=== PATIENT | male | born 1975 | race Hispanic/Latino ===

== ENCOUNTER 2017-02-08 15:57 | Day surgery (SDC) | payer OTHER ==
[~2017-02-08 15:57] MED LIST: DIPRIVAN 10 MG/ML IV ONE; NACL 0.9% 1000 ML 0 ML ONE; OMNIPAQUE 300 MG/50 ML (CATH LAB) IV ONE; WATER FOR IRRIG STERILE IR ONE; XYLOCAINE MPF 2% ONE
[2017-02-08] MEDS ORDERED: NACL BACTERIOSTATIC INFILTRATI ONE (16:12)
--- NOTE | 2017-02-08 16:22 | Anesthesia Day of Surgery ---
Anesthesia Day of Surgery - Day of Surgery Patient Examined: Yes Patient H&P Reviewed: Yes Patient is NPO: Yes
--- NOTE | 2017-02-08 16:38 | Anesthesia Consultation ---
Anesthesia Consult and Med Hx - Airway Anesthetic Teeth Evaluation: Good ROM Head & Neck: Adequate Mental/Hyoid Distance: Adequate Mallampati Class: Class II Intubation Access Assessment: Probably Good - Pulmonary Exam CTA: Yes - Pre-Operative Health Status ASA Pre-Surgery Classification: ASA2 Proposed Anesthetic Plan: General - Pulmonary Hx Smoking: Yes (CHEWING TOBACCO-STOPPED 3 YRS AGO) Hx Sleep Apnea: No (RIMMA PRE SCREEN LOW RISK) - Cardiovascular System Hx Hypertension: No - Gastrointestinal Hx Gastroesophageal Reflux Disease: Yes (occ. no meds at present) - Other Systems Hx Alcohol Use: Yes (1-2 BEERS QD- STOPPED 8 DAYS AGO) Hx Cancer: No - Additional Comments Anesthesia Medical History Comments: NPO after MN. No anesthesia problems in past
[2017-02-08] MEDS ORDERED: VERSED IV NR (17:00)
[2017-02-08] MEDS ORDERED: PEPCID PO NR (17:00)
[2017-02-08] MEDS ORDERED: NACL 0.9% 1000 ML 1,000 ML IV SCH (17:00)
[2017-02-08] MEDS ORDERED: ANCEF/STERILE WATER 2 GM/20 ML 2 GM/20 ML SYRINGE IV ONE (17:40)
--- NOTE | 2017-02-08 17:59 | Short Stay Summary ---
Short Stay Documentation Date of service: 02/08/17 - History H&P: obtained from office - Allergies and Medications Current Medications: Allergies No Known Allergies Allergy (Verified 02/07/17 15:52) Home Medications Medication Instructions Recorded Confirmed Last Taken Type Ciprofloxacin HCl [Ciprofloxacin 500 mg PO BID 02/07/17 02/08/17 02/06/17 History TAB] Fexofenadine/Pseudoephedrine 1 tab PO PRN PRN 02/07/17 02/08/17 02/06/17 History [Pam-D 12 Hour Tablet] HYDROcodone/APAP 5-325 [[place] 1 tab PO PRN PRN 02/07/17 02/07/17 Unknown History 5-325 mg TAB] Tamsulosin [Flomax] 0.4 mg PO QHS 02/07/17 02/08/17 02/06/17 History oxyCODONE [Roxicodone] 5 mg PO Q6HR PRN 02/07/17 02/08/17 02/08/17 History Active Medications Famotidine (Pepcid) 20 mg PO PREOP NR Stop: 02/09/17 16:59 Last Admin: 02/08/17 16:27 Dose: 20 mg Sodium Chloride (Nacl 0.9% 1000 Ml) 1,000 mls @ 75 mls/hr IV DIRECT SARINA Midazolam HCl (Versed) 2 mg IV PREOP NR Stop: 02/08/17 23:59 Last Admin: 02/08/17 16:27 Dose: 2 mg - Brief post op/procedure progress note Date of procedure: 02/08/17 Pre-op diagnosis: Left Uret stone w/ severe pain Post-op diagnosis: same Procedure: cysto, brpg, left stent 6x28, left dilation, left rigid urs Anesthesia: GETA Findings: lt uret stone hydro Surgeon: CURTIS WHALEN Estimated blood loss: minimal Pathology: none Condition: stable - Hospital course Hospital course: or pacu home - Disposition Condition at discharge: Good Disposition: DISCHARGED TO HOME OR SELFCARE Short Stay Discharge Plan Activity: advance as tolerated Diet: advance as tolerated Follow up with: CURTIS WHALEN MD [Staff Physician] - 3 Days
[2017-02-08] MEDS ORDERED: OMNIPAQUE 300 MG/50 ML (CATH LAB) IV ONE ×2 (18:22)
[2017-02-08] MEDS ORDERED: WATER FOR IRRIG STERILE IR ONE ×2 (18:22)
[2017-02-08] MEDS ORDERED: ZOFRAN ONE (18:51)
[2017-02-08] MEDS ORDERED: DILAUDID ONE (19:26)
[2017-02-08] MEDS: DILAUDID IV PRN ×3 (19:33→20:42)
[2017-02-08 21:37] VITALS: BP 140/88
--- NOTE | 2017-02-09 15:38 | Fluoroscopy Report ---
Left retrograde pyelogram and left ureteral dilatation procedure. Findings: The right pyelocalyceal system and ureter are normal. There is mild left pelvocaliectasis. The left ureter appears normal. After performing a balloon dilatation, a double-J left ureteral stent was placed in satisfactory position.
--- NOTE | 2017-02-11 08:58 | Operative Report ---
PREOPERATIVE DIAGNOSES: Severe left flank pain, bilateral renal stones, left ureteral 4-5 mm stone. POSTOPERATIVE DIAGNOSES: Severe left flank pain, bilateral renal stones, left ureteral 4-5 mm stone. PROCEDURE: Cystoscopy, bilateral retrograde pyelogram, left ureteral stent placement 6 x 28, left ureteral dilation, left ureteroscopy. FINDINGS: Distal ureter stenosed; also just proximal ureteral orifice and left mid ureteral stone. CLINICAL INDICATIONS: The patient counseled RCBA. The patient was tentatively trying to do extracorporeal shockwave lithotripsy, but came in unable to tolerate the pain, scheduled for this procedure as an add-on. Counseled on risks, RCBA, I made consent. DESCRIPTION OF PROCEDURE: The patient had antibiotics and SCDs. He was transferred to the OR suite in supine position, anesthesia, dorsal lithotomy, prepped and draped in standard fashion. At this point, a 20-Burmese scope, normal penile, bulbar urethra, mild to moderate enlarged lateral and median lobes. Upon entering bladder, pancystoscopy with 30 and 70-degree lens demonstrated no tumors, lesions or other abnormalities. At this point, the right retrograde pyelogram, 8-Burmese cone-tipped catheter, normal right distal ureter, proximal ureter, renal pelvis calyces. No filling defects or hydronephrosis. Left retrograde demonstrated a filling defect and some mild hydro. We tried not to over distend any of the system, but a filling defect in approximately the mid ureter. At this point, the ureteral orifice looked very small and stenosed. A Glidewire was passed up to left renal pelvis. A Glidewire under fluoroscopic visualization, a balloon dilator was passed. We began our dilation, but there was still a stenosed area just approximately 1 cm from the ureteral orifice, an area that was significantly stenosed that even the balloon dilator was not actively able to open. At this point, we removed the balloon dilator, passed the second wire, rigid scope passed to inspect the area, and with this, we were able to passively pass the rigid scope and dilate this area. Next, we attempted passing the scope further; however, the ureter did seem to be stenosed and the angle appeared that it would cause more trauma once we were able to pass this point. We did pass this point by a few centimeters, but once again the area and the angles appeared that the rigid scope would be very tight, would be very difficult to access the stone with that or even a flexible. The likely best thing was to place a stent and allow for some passive dilation and reevaluation. At this point, the stent was passed. The scope was removed. A wire backloaded on the cystoscope. A 6 x 28 double-J stent was passed over the wire under direct and fluoroscopic visualization. When the wire and instrument were removed, there was nice proximal J, nice distal J in the bladder. Bladder was drained, scope was removed. Exam under anesthesia, bilateral testicles, no masses on exam or nodules. At this point, the patient was awakened and transferred to PACU. PLAN: The patient is staged for future repeat ureteroscopy or extracorporeal shockwave lithotripsy if stone visible. The patient is also staged for future stent removal. JOB# [id number] ATS/NTS
== END 2017-02-08 21:30 | disposition home or self-care (01) ==
LOC: OR 15:57
PROVIDERS: ATTEND Urology
DX: N20.1 Calculus of ureter (principal); N20.0 Calculus of kidney; K21.9 Gastro-esophageal reflux disease without esophagitis; F10.21 Alcohol dependence, in remission; Z87.891 Personal history of nicotine dependence; Z83.49 Family history of other endocrine, nutritional and metabolic diseases; Z80.8 Family history of malignant neoplasm of other organs or systems; Z80.51 Family history of malignant neoplasm of kidney
CPT/HCPCS: 52332; 74420; 74485; A4217; C1726; C1758; C1769; C2617; J0690; J1170; J2250; J2405; J2704; J7030; Q9967

== ENCOUNTER 2017-05-25 05:44 | Inpatient (IN) | payer OTHER ==
[2017-05-25] MEDS ORDERED: NACL BACTERIOSTATIC INFILTRATI ONE (06:44)
[2017-05-25] MEDS ORDERED: DILAUDID IV ONE (07:18)
[2017-05-25] MEDS ORDERED: DILAUDID IV PRN (07:18)
--- NOTE | 2017-05-25 07:21 | Anesthesia Consultation ---
Anesthesia Consult and Med Hx Date of service: 05/25/17 - Airway Anesthetic Teeth Evaluation: Good ROM Head & Neck: Adequate Mental/Hyoid Distance: Adequate Mallampati Class: Class II Intubation Access Assessment: Probably Good - Pulmonary Exam CTA: Yes - Cardiac Exam Cardiac Exam: RRR - Pre-Operative Health Status ASA Pre-Surgery Classification: ASA2 Proposed Anesthetic Plan: General - Pulmonary Hx Smoking: Yes (CHEWING TOBACCO-STOPPED 3 YRS AGO) Hx Sleep Apnea: No (RIMMA PRE SCREEN LOW RISK) - Cardiovascular System Hx Hypertension: No (recent high reading) Hx Coronary Artery Disease: No (But has to see a atomic spectroscopist because of incidental finding on CT + fam hx) Hx Heart Attack/AMI: No (No CP, no SOB, >2FOS) - Gastrointestinal Hx Gastroesophageal Reflux Disease: Yes (occ. no meds at present) - Other Systems Hx Alcohol Use: Yes (1-2 BEERS daily) Hx Cancer: No
--- NOTE | 2017-05-25 07:21 | Anesthesia Day of Surgery ---
Anesthesia Day of Surgery - Day of Surgery Patient Examined: Yes Patient H&P Reviewed: Yes Patient is NPO: Yes
[2017-05-25] MEDS ORDERED: DIPRIVAN 10 MG/ML IV ONE (07:31)
[2017-05-25] MEDS ORDERED: SUBLIMAZE ONE (07:32)
[2017-05-25] MEDS ORDERED: LACTATED RINGERS 1,000 ML IV SCH ×2 (08:00)
[2017-05-25] MEDS ORDERED: PEPCID PO NR (08:00)
[2017-05-25] MEDS ORDERED: ZOFRAN IV PRN (08:00)
[2017-05-25] MEDS ORDERED: ANCEF/STERILE WATER 2 GM/20 ML 2 GM/20 ML SYRINGE IV ONE (08:40)
[2017-05-25] MEDS ORDERED: ANCEF/STERILE WATER 2 GM/20 ML IV NR (08:40)
--- NOTE | 2017-05-25 09:03 | Short Stay Summary ---
Short Stay Documentation Date of service: 05/25/17 - History H&P: obtained from office - Allergies and Medications Current Medications: Allergies No Known Allergies Allergy (Verified 02/07/17 15:52) Home Medications Medication Instructions Recorded Confirmed Last Taken Type Tamsulosin [Flomax] 0.4 mg PO QHS 02/07/17 05/19/17 05/24/17 History oxyCODONE [Roxicodone] 5 mg PO Q6HR PRN 02/07/17 05/19/17 05/24/17 History Sulfamethoxazole/Trimethoprim 1 each PO DAILY 05/19/17 05/19/17 05/24/17 History [Sulfamethoxazole-Tmp Ss Tablet] Active Medications Famotidine (Pepcid) 20 mg PO PREOP NR Stop: 05/25/17 10:00 Last Admin: 05/25/17 07:51 Dose: 20 mg Hydromorphone HCl (Dilaudid) 0.5 mg IV Q10MIN PRN PRN Reason: Pain , Severe (7-10) Stop: 05/25/17 12:00 Lactated Ringer's (Lactated Ringers) 1,000 mls @ 100 mls/hr IV DIRECT SARINA Last Admin: 05/25/17 07:53 Dose: 100 mls/hr - Brief post op/procedure progress note Date of procedure: 05/25/17 Pre-op diagnosis: left ureteral stone Post-op diagnosis: same Procedure: lt urs, left stent Anesthesia: GETA Findings: no dev Surgeon: CURTIS WHALEN Estimated blood loss: minimal Pathology: none Condition: stable - Hospital course Hospital course: orpacu extended obs home; disc obs overnight - Disposition Condition at discharge: Good Disposition: DC-01 TO HOME OR SELFCARE Short Stay Discharge Plan Activity: advance as tolerated Diet: advance as tolerated Follow up with: CURTIS WHALEN MD [Staff Physician] - 7 Days Forms: Outpatient Surgery DC Inst. Prescriptions: Oxycodone HCl/Acetaminophen [Percocet 10-325 mg] 0.5 - 1 each PO Q6HR PRN #25 tablet PRN Reason: Pain Sulfamethoxazole/Trimethoprim [Bactrim DS TAB] 1 each PO BID #10 tablet
[2017-05-25] MEDS ORDERED: REGLAN ONE (09:28)
[2017-05-25] MEDS ORDERED: QUELICIN ONE (09:28)
[2017-05-25] MEDS ORDERED: BENADRYL ONE (09:28)
[2017-05-25] MEDS ORDERED: DECADRON ONE (09:29)
[2017-05-25] MEDS ORDERED: ZOFRAN ONE (09:29)
[2017-05-25] MEDS ORDERED: XYLOCAINE MPF 2% ONE (09:56)
[2017-05-25] MEDS ORDERED: WATER FOR IRRIG STERILE IR ONE ×2 (10:01→10:02)
[2017-05-25] MEDS ORDERED: OMNIPAQUE 300 MG/50 ML (CATH LAB) IV ONE (10:01)
[2017-05-25] MEDS ORDERED: PROVENTIL IH ONE ×2 (10:37→10:42)
[2017-05-25] MEDS ORDERED: NORMODYNE IV ONE ×2 (10:43→10:51)
[2017-05-25] MEDS ORDERED: ANTILIRIUM ONE (10:43)
[2017-05-25] MEDS ORDERED: ANTILIRIUM IV PRN (10:44)
--- NOTE | 2017-05-25 12:03 | Fluoroscopy Report ---
Findings: Fluoroscopy was provided by radiology during retrograde urography done by urology. 10 fluoroscopic images were captured. Please correlate with the procedural report.
--- NOTE | 2017-05-25 12:29 | XRay Report ---
AP CHEST: HISTORY: Shortness of breath, hypoxia AP view of the chest demonstrates a normal mediastinal and cardiac contour with clear lungs and normal bony and soft tissue structures. IMPRESSION: Unremarkable AP chest.
--- NOTE | 2017-05-25 12:50 | Post Anesthesia Evaluation ---
- Post Anesthesia Evaluation Patient Participated: Yes Airway Patent: Yes Stable Respiratory Function: Yes Nausea/Vomiting: No Temp > 96.8F: Yes Pain Manageable: Yes Adequeate Hydration: Yes Anesthesia Complications: No Block Receding Appropriately: Not Applicable Patient on Ventilator: No
--- NOTE | 2017-05-25 17:38 | History and Physical Report ---
History of Present Illness Date of admission: 05/25/17 17:14 Chief complaint: My oxygen is low History of present illness: 41 YO Male with ETOH Dependence, GERD, Nephrolithaisis S/P stent placement admitted directly at the request of Dr. Farias for evaluation. Pt Past History Past Medical History: GERD, other (ETOH dependence) Past Surgical History: Other (urologic stant placement) Social history: , lives with family, alcohol abuse. denies: smoking, prescription drug abuse, IV drug use Family history: CAD, hypertension Medications and Allergies Allergies Allergy/AdvReac Type Severity Reaction Status Date / Time No Known Allergies Allergy Verified 02/07/17 15:52 Home Medications Medication Instructions Recorded Confirmed Last Taken Type Tamsulosin [Flomax] 0.4 mg PO QHS 02/07/17 05/19/17 05/24/17 History oxyCODONE [Roxicodone] 5 mg PO Q6HR PRN 02/07/17 05/19/17 05/24/17 History Sulfamethoxazole/Trimethoprim 1 each PO DAILY 05/19/17 05/19/17 05/24/17 History [Sulfamethoxazole-Tmp Ss Tablet] Oxycodone HCl/Acetaminophen 0.5 - 1 each PO Q6HR PRN #25 tablet 05/25/17 Unknown Rx [Percocet 10-325 mg] Sulfamethoxazole/Trimethoprim 1 each PO BID #10 tablet 05/25/17 Unknown Rx [Bactrim DS TAB] Active Meds: Active Medications Cefazolin Sodium (Ancef/Sterile Water 2 Gm/20 Ml) 2 gm IV PREOP NR Stop: 05/25/17 21:00 Lactated Ringer's (Lactated Ringers) 1,000 mls @ 100 mls/hr IV DIRECT SARINA Last Admin: 05/25/17 07:53 Dose: 100 mls/hr Physostigmine Salicylate (Antilirium) 0.5 mg IV Q20M PRN PRN Reason: Agitation Stop: 05/25/17 23:59 Review of Systems All systems: negative Constitutional: other (low oxygen) Ears, nose, mouth and throat: no ear pain Cardiovascular: no chest pain Respiratory: no cough Gastrointestinal: no abdominal pain Genitourinary Male: no dysuria Rectal: no pain Musculoskeletal: no arm numbness/tingling Integumentary: no rash Neurological: no transient paralysis Psychiatric: no anxiety Endocrine: no cold intolerance Hematologic/Lymphatic: no easy bruising Allergic/Immunologic: no urticaria Exam - Constitutional Vitals: Temp Pulse Resp BP Pulse Ox 98.6 F 68 14 139/85 96 05/25/17 06:32 05/25/17 06:32 05/25/17 11:02 05/25/17 06:32 05/25/17 06:32 General appearance: Present: mild distress - EENT Eyes: Present: PERRL ENT: hearing intact, clear oral mucosa - Neck Neck: Present: supple, normal ROM - Respiratory Respiratory effort: normal Respiratory: bilateral: CTA - Cardiovascular Heart Sounds: Present: S1 & S2. Absent: rub, click - Extremities Extremities: pulses symmetrical, No edema Peripheral Pulses: within normal limits - Abdominal General gastrointestinal: Present: soft, non-tender, non-distended, normal bowel sounds Male genitourinary: Present: normal - Integumentary Integumentary: Present: clear, warm, dry - Musculoskeletal Musculoskeletal: gait normal, strength equal bilaterally - Psychiatric Psychiatric: appropriate mood/affect, intact judgment & insight - Neurologic Neurologic: CNII-XII intact, moves all extremities Assessment and Plan - Patient Problems (1) Acute respiratory failure Current Visit: Yes Status: Acute Qualifiers: Respiratory failure complication: R Plan to address problem: Supplemental oxygen, nebs, aspiration precautions, pulmonary toilet, incentive spirometry, Symptoms improved at time of evaluation. Pt wants to go home.Pt made aware of risks. Pt to return to ED if symtoms return and he decides to go home. . (2) EtOH dependence Current Visit: Yes Status: Acute Qualifiers: Substance use status: uncomplicated Complication of substance-induced condition: C Qualified Code(s): F10.20 - Alcohol dependence, uncomplicated Plan to address problem: supportive care. Pt has not had a drink in more than 96 hrs. continue to monitor (3) GERD (gastroesophageal reflux disease) Current Visit: Yes Status: Acute Qualifiers: Esophagitis presence: E Plan to address problem: ppi therapy, (4) Nephrolithiasis Current Visit: Yes Status: Acute Plan to address problem: Urology consulted. (5) DVT prophylaxis Current Visit: Yes Status: Acute
[2017-05-25] MEDS ORDERED: PROVENTIL IH PRN (17:45)
[2017-05-25] MEDS ORDERED: TYLENOL PO PRN (17:45)
[2017-05-25 20:17] VITALS: BP 109/82
[2017-05-25] MEDS ORDERED: PEPCID PO SCH (22:00)
--- NOTE | 2017-05-30 07:55 | Operative Report ---
PREOPERATIVE DIAGNOSIS: Left ureteral 4-mm stone. POSTOPERATIVE DIAGNOSIS: Left ureteral 4-mm stone. PROCEDURE: Cystoscopy, left ureteroscopy, left ureteral stent placement, 6-Turkmen. SURGEON: Macario Farias MD ANESTHESIA: General. SPECIMENS: None. ESTIMATED BLOOD LOSS: Minimal. COMPLICATIONS: None. FINDINGS: Very narrow ureter on the right and left consistent with past ureteroscopy having most narrow ureter, but seems to drain well, right retrograde normal, left retrograde mild hydro. CLINICAL INDICATION: flexible ureteroscope with very narrow ureter and unable to pass small stones. He was counseled on RCBA, antibiotics, SCDs. DESCRIPTION OF PROCEDURE: The patient was transferred to the OR suite in supine position, anesthesia, dorsal lithotomy, prepped and draped in standard fashion. A 22-Turkmen scope passed. Pancystoscopy 30 and 70-degree lens demonstrated no tumors, lesions, or other abnormalities. At this point, we did a right retrograde pyelogram with 8-Turkmen cone-tipped catheter within normal limits. No filling defects. Hydronephrosis seemed to drain within normal limits for his past RPG, but what was found there was a very narrow caliber right ureter. This was done on the left side. Retrograde with some hydroureter, but still very narrow caliber ureter, likely stone only partially obstructing. This was an extreme narrow caliber left ureter consistent with past ureteroscopy and RPG. At this point, a Glidewire was passed. The patient was having pain before the procedure. There may be some mild once again the fullness in comparison to the other narrow ureter, but this was still well below the normal size of normal standard diameter of a ureter. At this point, Glidewire passed. We passed [facility] rigid ureteroscope, still with some difficult passing this up ureter. At this point, we used the other additional ureteroscope, was passed. Attempted passing this up was unsuccessful. Second Glidewire passed. Flexible scope was passed over the Glidewire and this still would only pass up beyond the bony pelvis. Of note, at the beginning of the procedure on the left side when the first Glidewire was passed, we did attempt passing a flexible ureteroscope passed. First due to his known history, but even at that point the flexible ureteroscope would not pass and then we went to the rigid ureteroscope to attempt to see if we could with some passive dilation at the more distal ureter would be able to pass the flexible scope and we were unsuccessful as described. At this point, the wire was backloaded on cystoscope. A 6-Turkmen double-J stent was passed over the wire under direct and fluoroscopic visualization when the wire and string was removed, nice proximal J, nice distal J within the bladder bladder drained. The patient was awakened, transferred to the PACU in good and stable condition. JOB# [id number] ATS/MICHELLE KENNY
== END 2017-05-25 18:05 | disposition home or self-care (01) | DRG 693 ==
LOC: OR 05:44 → 3A 17:14
PROVIDERS: ADMIT Internal Medicine; ATTEND Internal Medicine
PROC: 0T778DZ Dilation of Left Ureter with Intraluminal Device, Via Natural or Artificial Opening Endoscopic (ICD-10-PCS; principal; 2017-05-25)
DX: N20.2 Calculus of kidney with calculus of ureter (principal); J96.00 Acute respiratory failure, unspecified whether with hypoxia or hypercapnia; F10.20 Alcohol dependence, uncomplicated; K21.9 Gastro-esophageal reflux disease without esophagitis; Z82.49 Family history of ischemic heart disease and other diseases of the circulatory system
CPT/HCPCS: 71010; 74420; A4217; C1758; C1769; C2617; J0330; J0690; J1100; J1170; J1200; J2405; J2704; J2765; J3010; J7120; Q9967

== ENCOUNTER 2017-06-08 05:50 | Day surgery (SDC) | payer OTHER ==
[2017-06-08] MEDS ORDERED: PEPCID PO NR (06:00)
[2017-06-08] MEDS ORDERED: VERSED IV NR (06:00)
[2017-06-08] MEDS ORDERED: NACL BACTERIOSTATIC INFILTRATI ONE (06:43)
[2017-06-08] MEDS: NACL 0.9% 1000 ML 1,000 ML IV SCH ×2 (06:55→11:32)
--- NOTE | 2017-06-08 07:00 | Anesthesia Consultation ---
Anesthesia Consult and Med Hx Date of service: 06/08/17 - Airway Anesthetic Teeth Evaluation: Good ROM Head & Neck: Adequate Mental/Hyoid Distance: Adequate Mallampati Class: Class I Intubation Access Assessment: Probably Good - Pulmonary Exam CTA: Yes - Cardiac Exam Cardiac Exam: RRR - Pre-Operative Health Status ASA Pre-Surgery Classification: ASA2 Proposed Anesthetic Plan: General - Pulmonary Hx Smoking: Yes (CHEWING TOBACCO-STOPPED 3 YRS AGO, remote smoking hx) Hx Sleep Apnea: No (RIMMA PRE SCREEN LOW RISK) - Cardiovascular System Hx Hypertension: No (recent high reading , BUT NO DX) - Gastrointestinal Hx Gastroesophageal Reflux Disease: Yes (occ. no meds at present) - Other Systems Hx Alcohol Use: Yes (1-2 BEERS daily) Hx Cancer: No - Additional Comments Anesthesia Medical History Comments: No previous anesthesia complications, but awareness during recent surgery.
--- NOTE | 2017-06-08 07:01 | Anesthesia Day of Surgery ---
Anesthesia Day of Surgery - Day of Surgery Patient Examined: Yes Patient H&P Reviewed: Yes Patient is NPO: Yes
[2017-06-08] MEDS ORDERED: DIPRIVAN 10 MG/ML IV ONE (07:14)
[2017-06-08] MEDS ORDERED: XYLOCAINE MPF 2% ONE (07:15)
[2017-06-08] MEDS ORDERED: SUBLIMAZE ONE (07:15)
[2017-06-08] MEDS ORDERED: DILAUDID IV PRN (07:35)
[2017-06-08] MEDS ORDERED: ZOFRAN IV PRN (08:00)
[2017-06-08] MEDS ORDERED: ANCEF/STERILE WATER 2 GM/20 ML IV NR (09:00)
[2017-06-08] MEDS ORDERED: VANCOMYCIN/NS 1 GM/250 ML 1 GM/250 ML BAG IV ONE (09:03)
[2017-06-08] MEDS ORDERED: DECADRON ONE (09:08)
[2017-06-08] MEDS ORDERED: BENADRYL ONE (09:08)
[2017-06-08] MEDS ORDERED: OMNIPAQUE 300 MG/50 ML (CATH LAB) IV ONE (09:13)
[2017-06-08] MEDS ORDERED: WATER FOR IRRIG STERILE IR ONE ×2 (09:14)
[2017-06-08] MEDS ORDERED: ZOFRAN ONE (09:18)
[2017-06-08] MEDS ORDERED: XYLOCAINE TOPICAL 2% ONE (09:26)
[2017-06-08] MEDS ORDERED: XYLOCAINE 2% UROJET ONE (09:27)
[2017-06-08] MEDS ORDERED: TORADOL ONE (10:32)
[2017-06-08] MEDS ORDERED: ANTILIRIUM ONE (10:58)
--- NOTE | 2017-06-08 11:32 | Post Anesthesia Evaluation ---
- Post Anesthesia Evaluation Patient Participated: Yes Airway Patent: Yes Stable Respiratory Function: Yes Nausea/Vomiting: No Temp > 96.8F: Yes Pain Manageable: Yes Adequeate Hydration: Yes Anesthesia Complications: No Block Receding Appropriately: Not Applicable Patient on Ventilator: No Other Comments: patient woke up delirious. Was given Versed helped calm him down. During surgery patient had a allergic reaction. He was given Lidocaine, Fentanyl and propofol before the reaction. Unclear which one caused it. Would recommend pretreatment with Benadryl and steriod next surgery.
--- NOTE | 2017-06-08 13:08 | Fluoroscopy Report ---
Retrograde pyelogram: The preliminary film demonstrates a couple of calculi overlying the right kidney and a left internal stent. A ureteroscope was passed into the left renal pelvis. Injection of contrast demonstrated a well opacified collecting system and proximal ureter with no filling defect. A stent was left in place.
--- NOTE | 2017-06-08 13:38 | Short Stay Summary ---
Short Stay Documentation Date of service: 06/08/17 - History H&P: obtained from office - Allergies and Medications Current Medications: Allergies No Known Allergies Allergy (Verified 02/07/17 15:52) Home Medications Medication Instructions Recorded Confirmed Last Taken Type Tamsulosin [Flomax] 0.4 mg PO QHS 02/07/17 06/01/17 06/07/17 History oxyCODONE [Roxicodone] 5 mg PO Q6HR PRN 02/07/17 06/01/17 06/07/17 History Active Medications Cefazolin Sodium (Ancef/Sterile Water 2 Gm/20 Ml) 2 gm IV PREOP NR Stop: 06/08/17 16:00 Famotidine (Pepcid) 20 mg PO PREOP NR Stop: 06/08/17 23:45 Last Admin: 06/08/17 07:05 Dose: 20 mg Hydromorphone HCl (Dilaudid) 0.5 mg IV Q10MIN PRN PRN Reason: Pain , Severe (7-10) Stop: 06/08/17 15:00 Last Admin: 06/08/17 11:20 Dose: 0.5 mg Sodium Chloride (Nacl 0.9% 1000 Ml) 1,000 mls @ 100 mls/hr IV DIRECT SARINA Last Admin: 06/08/17 11:32 Dose: 100 mls/hr Midazolam HCl (Versed) 2 mg IV PREOP NR Stop: 06/08/17 23:59 Last Admin: 06/08/17 07:06 Dose: 2 mg - Brief post op/procedure progress note Date of procedure: 06/08/17 Pre-op diagnosis: left uret, yan renal stone Post-op diagnosis: same Procedure: left urs, rpg, asp; stnet change 6x26 Anesthesia: GETA Findings: no uret stone no free floating renal stones Surgeon: CURTIS WHALEN Estimated blood loss: minimal Pathology: none Condition: stable - Hospital course Hospital course: orpacuhome - Disposition Condition at discharge: Good Disposition: DC-01 TO HOME OR SELFCARE Short Stay Discharge Plan Activity: advance as tolerated Diet: advance as tolerated Additional Instructions: INCREASE ORAL FLUIDS.DO NOT PULL THE STRING. NO STRAINING. CALL FOR F/U APPT. Follow up with: CURTIS WHALEN MD [Staff Physician] - 06/13/17
[2017-06-08 14:58] VITALS: BP 110/80
--- NOTE | 2017-06-21 10:36 | Operative Report ---
UROLOGY OPERATIVE NOTE PREOPERATIVE DIAGNOSES: 1. Left ureteral stone. 2. Bilateral renal stones. POSTOPERATIVE DIAGNOSIS: 1.Left ureteral stone. 2.Bilateral renal stones. PROCEDURE: Left ureteroscopy, left pyelogram, left stent removal, left stent replacement 4.7 to 5 Taiwanese, stent removal, left ureteroscopy. FINDINGS: Excellent vision even with the stent in for couple of weeks. There is significant stenosis up the ureter, I was able to pass the flexible ureteroscope and had good visualization of the distal and proximal ureter. No stone identified. Additionally, did an inspection of the upper and lower pole calices and renal pelvis with no floating stone identified. There was a couple of stones in the upper pole segment which were embedded into the papilla and wall and did not flush or irrigated all. There was a large amount of debris within the renal pelvis, which was flushed and irrigated out during the procedure, which did take sometimes. CLINICAL INDICATIONS: The patient counseled RCBA, antibiotics, SCDs. The patient had difficulty with ureteroscopy in the past due to stenotic ureter and small caliber ureter and had significant pain, had a stent placed, unable to pass a rigid or flexible scope on the past time and stage for this procedure with hopes for some passive dilation. Had antibiotics and SCDs. DESCRIPTION OF PROCEDURE: The patient was transferred to OR suite in supine position, anesthesia, dorsal lithotomy, prepped and draped in standard fashion. A 20-Taiwanese scope passed. No tumors visualized. Stent visualized. Wire passed adjacent to the renal pelvis under fluoroscopy. Stent grasped and pulled out intact. Second wire was placed through the stent and then the entire stent was pulled out intact. Next a flexible ureteroscope was then passed over the wire, still the ureter was stenotic and tight. With manipulation, we were able to pass this up from the distal ureter to proximal ureter, no stone was visualized throughout to the renal pelvis. There was some moderate amount of debris, we aspirated first and then flushed, irrigated and flushed out as much debris as possible. We inspected the renal pelvis and no stone was identified in lower pole as best, no stone identified upper pole and upper lateral calyces. There was no floating stone. We irrigated several times. There were some stones that were embedded within the papilla renal and in the calyces in the wall, which were not mobile at all. These were flushed aggressively several times and almost could not be any stone from previous stone being pushed back. It did not float or moved all. It was elected due to the patient's tolerance and patient's desire not to irritate or move these stones and cause him another problem given how difficult it is even to treat his single stone. He was counseled on the options before and wanted us just to try to treat the stone and get the stent out as quickly as possible. At this point, the scope was brought back down the ureter, very slowly inspected the ureter very well and no stone was identified and even though some stenotic areas of the proximal ureter was very stenotic and barely fit the ureteroscope, so it was a very small, tight ureter, but got a good inspection of the entire ureter and saw no stone and even no signs were necessarily stone had been impacted. The scope was then withdrawn, wire was backloaded on the cystoscope. A 4.8 Taiwanese stent was passed over the wire under direct and fluoroscopic visualization. When the wire was removed, there was nice proximal J string that was left intact. It was secured to the penis after penis was cleaned with Mastisol and Steri-Strips. The patient was awakened and transferred to the PACU in good and stable condition. JOB# [id number] ATS/NTS
== END 2017-06-08 15:00 | disposition home or self-care (01) ==
LOC: OR 05:50
PROVIDERS: ATTEND Urology
DX: N20.2 Calculus of kidney with calculus of ureter (principal); N28.89 Other specified disorders of kidney and ureter; I10 Essential (primary) hypertension; K21.9 Gastro-esophageal reflux disease without esophagitis; Z98.890 Other specified postprocedural states; Z87.891 Personal history of nicotine dependence; Z72.89 Other problems related to lifestyle; Z84.1 Family history of disorders of kidney and ureter
CPT/HCPCS: 52330; 52332; 74420; A4217; C1758; C1769; C2617; J1100; J1170; J1200; J1885; J2250; J2405; J2704; J3010; J3370; J7030; Q9967; J0690

== ENCOUNTER 2017-06-11 03:28 | Emergency (ER) | payer OTHER ==
[2017-06-11 04:23] LABS: Basophils % (Auto) 0.5 % (0.0-1.8); Eosinophils % (Auto) 1.4 % (0.0-4.3); Hematocrit 43.5 % (35.5-45.6); Hemoglobin 14.4 gm/dl (11.8-15.2); Mean Corpuscular HGB Conc 33 % (32-34); Mean Corpuscular Hemoglobin 28 pg (28-32); Mean Corpuscular Volume 84 fl (84-94); Platelet Count 205 K/mm3 (140-440); Red Blood Count 5.18 M/mm3 (3.65-5.03); Red Cell Distribution Width 13.8 % (13.2-15.2); White Blood Count 11.7 K/mm3 (4.5-11.0)
[2017-06-11 04:45] LABS: Anion Gap 22 mmol/L; Blood Urea Nitrogen 14 mg/dL (9-20); Calcium 9.1 mg/dL (8.4-10.2); Carbon Dioxide 21 mmol/L (22-30); Chloride 95.3 mmol/L (98-107); Glucose 102 mg/dL (75-100); Sodium 134 mmol/L (137-145)
[2017-06-11 05:28] LABS: Bacteria,Urine 1+ /HPF (Negative); Bilirubin,Urine NEG (Negative); Blood,Urine LG (Negative); Ketones,Urine NEG (Negative); Leukocyte Esterase,Urine LG (Negative); Mucus,Urine FEW /HPF; Nitrite,Urine NEG (Negative); Protein,Urine <15 mg/dL mg/dL (Negative); Urobilinogen,Urine < 2.0 mg/dL (<2.0)
[2017-06-11] MEDS ORDERED: TYLENOL PO ONE (06:32)
[2017-06-11] MEDS ORDERED: TYLENOL ONE (06:32)
[2017-06-11 08:09] VITALS: BP 128/92
--- NOTE | 2017-06-11 09:19 | Emergency Department Report ---
HPI - General Chief Complaint: Fever Time Seen by Provider: 06/11/17 08:59 - HPI HPI: Room 24 The patient is a 41-year-old male presenting with a chief complaint of fever. Patient is status post left ureteroscopy with left ureteral stent placement performed by Dr. Pineda 05/25/2017. Patient states that intermittent left flank pain for several weeks since he was diagnosed with ureteral stone but has worsened yesterday and the development of fever. The patient states yesterday at approximately 19:00 and no subcutaneous 99.1F. Family states the fever increased to 100.8F 03:00. Family states he contacted the urologist on-call ( Dr. Ross) who instructed them to come to the ED if the fever persisted for greater than 4 hours. Patient presents to the ED secondary to fever and left flank pain. Patient admits to occasional dysuria but states this is usual after he he has a stent placement. Patient denies any history of hematuria. Patient currently gives his pain a score of 6/10 Location: Left flank Duration: [see above] Quality: Pain, febrile Severity: 100.8F Modifying factors: [see above] Context: [see above] Mode of transportation: [not driving] ED Past Medical Hx - Past Medical History Previous Medical History?: Yes Hx GERD: Yes (NO MEDS) Hx Headaches / Migraines: Yes (as a child) Hx Kidney Stones: Yes - Surgical History Past Surgical History?: No - Family History Family history: no significant - Social History Smoking Status: Former Smoker Substance Use Type: None (denies illicit drug use), Alcohol (rarely) - Medications Home Medications: Home Medications Medication Instructions Recorded Confirmed Last Taken Type Tamsulosin [Flomax] 0.4 mg PO QHS 02/07/17 06/01/17 06/07/17 History oxyCODONE [Roxicodone] 5 mg PO Q6HR PRN 02/07/17 06/01/17 06/07/17 History Nitrofurantoin [place]/M-Cryst 100 mg PO Q12HR #14 capsule 06/08/17 Unknown Rx [Macrobid CAP] Oxybutynin [Ditropan] 5 mg PO Q8HR PRN #30 tablet 06/08/17 Unknown Rx Oxycodone HCl/Acetaminophen 0.5 - 1 each PO Q6HR PRN #30 tablet 06/08/17 Unknown Rx [Percocet 10-325 mg] ED Review of Systems ROS: Stated complaint: FEVER Other details as noted in HPI Comment: All other systems reviewed and negative Constitutional: fever Eyes: denies: eye pain, eye discharge, vision change ENT: denies: ear pain, throat pain Respiratory: denies: cough, shortness of breath, wheezing Cardiovascular: denies: chest pain, palpitations Endocrine: no symptoms reported Gastrointestinal: nausea. denies: vomiting Genitourinary: dysuria. denies: hematuria Musculoskeletal: other (left flank pain) Skin: denies: rash, lesions Neurological: denies: headache, weakness, paresthesias Psychiatric: denies: anxiety, depression Hematological/Lymphatic: denies: easy bleeding, easy bruising Physical Exam - Physical Exam Vital Signs: Vital Signs 06/11/17 06/11/17 06/11/17 03:49 06:33 08:05 Temperature 98.6 F 98.5 F 98.2 F Pulse Rate 96 H 93 H 83 Respiratory 22 20 Rate Blood Pressure 130/89 138/80 Blood Pressure 128/92 [Right] O2 Sat by Pulse 95 97 96 Oximetry Physical Exam: GENERAL: The patient is well-developed well-nourished male walking back to room from bathroom appearing to be in mild discomfort HEENT: Normocephalic. Atraumatic. Extraocular motions are intact. Patient has moist mucous membranes. NECK: Supple. Trachea midline CHEST/LUNGS: Clear to auscultation. There is no respiratory distress noted. HEART/CARDIOVASCULAR: Regular. There is no tachycardia. There is no gallop rub or murmur. ABDOMEN: Abdomen is soft, with mild discomfort to palpation in the left upper quadrant and suprapubic region. Patient has normal bowel sounds. There is no abdominal distention. SKIN: There is no rash. There is no edema. There is no diaphoresis. NEURO: The patient is awake, alert, and oriented. The patient is cooperative. The patient has normal speech and gait. MUSCULOSKELETAL: There is no evidence of acute injury. ED Course Vital Signs 06/11/17 06/11/17 06/11/17 03:49 06:33 08:05 Temperature 98.6 F 98.5 F 98.2 F Pulse Rate 96 H 93 H 83 Respiratory 22 20 Rate Blood Pressure 130/89 138/80 Blood Pressure 128/92 [Right] O2 Sat by Pulse 95 97 96 Oximetry - Consultations Consultation #1: 06/11/17 09:15 Urology paged 06/11/17 09:[address] Ross- recommends pulling out ureteral stent and administering IV antibiotics and ED. Have patient follow-up in office ED Medical Decision Making - Lab Data Result diagrams: 06/11/17 04:00 06/11/17 04:00 Laboratory Tests 06/11/17 06/11/17 06/11/17 04:00 04:00 04:48 WBC 11.7 H RBC 5.18 H Hgb 14.4 Hct 43.5 MCV 84 MCH 28 MCHC 33 RDW 13.8 Plt Count 205 Lymph % (Auto) 14.5 [place] % (Auto) 10.4 H Eos % (Auto) 1.4 Baso % (Auto) 0.5 Lymph # 1.7 [place] # 1.2 H Eos # 0.2 Baso # 0.1 Seg Neutrophils % 73.2 H Seg Neutrophils # 8.6 H Sodium 134 L Potassium 4.0 Chloride 95.3 L Carbon Dioxide 21 L Anion Gap 22 BUN 14 Creatinine 1.0 Estimated GFR > 60 BUN/Creatinine Ratio 14.00 Glucose 102 H Calcium 9.1 Urine Color Yellow Urine Turbidity Clear Urine pH 8.0 H Ur Specific [place] 1.010 Urine Protein <15 mg/dl Urine Glucose (UA) Neg Urine Ketones Neg Urine Blood Lg Urine Nitrite Neg Urine Bilirubin Neg Urine Urobilinogen < 2.0 Ur Leukocyte Esterase Lg Urine WBC (Auto) 54.0 H Urine RBC (Auto) 121.0 Urine Bacteria (Auto) 1+ Urine Mucus Few - Differential Diagnosis UTI, renal colic, Critical care attestation.: If time is entered above; I have spent that time in minutes in the direct care of this critically ill patient, excluding procedure time. ED Disposition Clinical Impression: UTI (urinary tract infection), Encounter for removal of ureteral stent Disposition: DC-01 TO HOME OR SELFCARE Is pt being admited?: No Does the pt Need Aspirin: No Condition: Stable Instructions: Urinary Tract Infection in Men (ED) Additional Instructions: Return to the emergency department immediately should you develop worsening symptoms, fever, inability to tolerate food or liquid or any other concerns. Referrals: PRIMARY CARE, [Primary Care Provider] - 3-5 Days CURTIS WHALEN MD [Staff Physician] - 3-5 Days Time of Disposition: 09:43
[2017-06-11] MEDS ORDERED: ROCEPHIN/NS 1 GM/50 ML 1 GM/50 ML BAG IV ONE (09:38)
[2017-06-11] MEDS ORDERED: MORPHINE IV ONE (09:41)
[2017-06-11] MEDS ORDERED: ZOFRAN IV ONE (09:41)
== END 2017-06-11 11:00 | disposition home or self-care (01) ==
LOC: ED 03:28
DX: N39.0 Urinary tract infection, site not specified (principal); K21.9 Gastro-esophageal reflux disease without esophagitis; G43.909 Migraine, unspecified, not intractable, without status migrainosus; Z87.891 Personal history of nicotine dependence; Z87.442 Personal history of urinary calculi
CPT/HCPCS: 36415; 80048; 81001; 85025; 87076; 87086; 87186; 96365; 96375; 99283; J0696; J2270; J2405